=== PATIENT | female | born 1960 | race Caucasian/White ===

== ENCOUNTER 2020-09-18 08:26 | Outpatient (CLI) | payer BC, SELFPAY | END 2020-09-18 08:27 | disposition home or self-care (01) | LOC: WOUND 08:31 | PROVIDERS: Family Provider Family Medicine; PCP Family Medicine; Visit Provider Nurse Practitioner Family | DX: L97.811 Non-pressure chronic ulcer of other part of right lower leg limited to breakdown of skin (principal) | CPT/HCPCS: 99214 ==

== ENCOUNTER 2020-09-25 08:08 | Outpatient (CLI) | payer BC, SELFPAY | END 2020-09-25 08:09 | disposition home or self-care (01) | LOC: WOUND 08:08 | PROVIDERS: Family Provider Family Medicine; PCP Family Medicine; Visit Provider Nurse Practitioner Family | DX: L97.811 Non-pressure chronic ulcer of other part of right lower leg limited to breakdown of skin (principal) | CPT/HCPCS: G0463 ==

== ENCOUNTER 2020-10-09 07:49 | Outpatient (CLI) | payer BC, SELFPAY | END 2020-10-09 07:50 | disposition home or self-care (01) | LOC: WOUND 07:50 | PROVIDERS: Family Provider Family Medicine; PCP Family Medicine; Visit Provider Nurse Practitioner Family | DX: L97.812 Non-pressure chronic ulcer of other part of right lower leg with fat layer exposed (principal) | CPT/HCPCS: 11042; 11045 ==

== ENCOUNTER 2020-10-14 06:00 | Outpatient (RCR) | payer BC, SELFPAY | END 2020-11-03 23:59 | disposition home or self-care (01) | LOC: MPT 06:00 | PROVIDERS: Family Provider Family Medicine; PCP Family Medicine; Referring Provider Nurse Practitioner Family; Visit Provider Nurse Practitioner Family | DX: T81.31XD Disruption of external operation (surgical) wound, not elsewhere classified, subsequent encounter (principal) | CPT/HCPCS: 97110; 97162 ==

== ENCOUNTER 2020-10-16 07:51 | Outpatient (CLI) | payer BC, SELFPAY | END 2020-10-16 07:52 | disposition home or self-care (01) | LOC: WOUND 07:52 | PROVIDERS: Family Provider Family Medicine; PCP Family Medicine; Visit Provider Nurse Practitioner Family | DX: T81.89XA Other complications of procedures, not elsewhere classified, initial encounter (principal) | CPT/HCPCS: 11042; 11045 ==

== ENCOUNTER 2021-02-23 06:00 | Outpatient (RCR) | payer BC, SELFPAY | END 2021-03-05 23:59 | disposition home or self-care (01) | LOC: MPT 06:00 | PROVIDERS: PCP Family Medicine; Referring Provider Surgery Plastic and Reconstructive Surgery; Visit Provider Surgery Plastic and Reconstructive Surgery | DX: S82.251 Displaced comminuted fracture of shaft of right tibia (principal); X58.XXXD Exposure to other specified factors, subsequent encounter | CPT/HCPCS: 97140; 97162 ==

== ENCOUNTER 2021-05-06 06:00 | Outpatient (RCR) | payer BC, SELFPAY | END 2021-06-05 23:59 | disposition home or self-care (01) | LOC: MPO 06:00 | PROVIDERS: PCP Family Medicine; Referring Provider Physical Medicine & Rehabilitation Spinal Cord Injury Medicine; Visit Provider Physical Medicine & Rehabilitation Spinal Cord Injury Medicine | DX: Z89.511 Acquired absence of right leg below knee (principal) | CPT/HCPCS: 97110; 97162 ==

== ENCOUNTER → 2021-07-17 16:54 | Outpatient (BNVA) | payer BC, SELFPAY | PROVIDERS: PCP Family Medicine; Visit Provider Emergency Medicine | DX: R10.2 Pelvic and perineal pain (principal); N39.0 Urinary tract infection, site not specified; R31.9 Hematuria, unspecified; S88.119A Complete traumatic amputation at level between knee and ankle, unspecified lower leg, initial encounter | CPT/HCPCS: 81000 ==

== ENCOUNTER → 2021-10-10 12:51 | Outpatient (BNVA) | payer BC, SELFPAY | PROVIDERS: PCP Family Medicine; Visit Provider Nurse Practitioner | DX: N39.0 Urinary tract infection, site not specified (principal); R39.9 Unspecified symptoms and signs involving the genitourinary system | CPT/HCPCS: 81000 ==

== ENCOUNTER → 2021-11-13 17:44 | Outpatient (BNVA) | payer BC, SELFPAY | PROVIDERS: PCP Family Medicine; Visit Provider Emergency Medicine | DX: N39.0 Urinary tract infection, site not specified (principal) | CPT/HCPCS: 81000 ==

== ENCOUNTER → 2022-09-22 11:12 | Outpatient (BNVA) | payer BC, SELFPAY | PROVIDERS: PCP Family Medicine; Visit Provider Nurse Practitioner Family | DX: N39.0 Urinary tract infection, site not specified (principal) | CPT/HCPCS: 81000; 87077; 87086; 87184 ==

== ENCOUNTER → 2023-01-25 12:52 | Outpatient (BNVA) | payer BC, SELFPAY | PROVIDERS: PCP Family Medicine; Visit Provider Nurse Practitioner Family | DX: N39.0 Urinary tract infection, site not specified (principal) | CPT/HCPCS: 81000; 87077; 87086; 87184 ==

== ENCOUNTER → 2023-02-08 14:07 | Outpatient (BNVA) | payer MEDICARE, SELFPAY | PROVIDERS: PCP Family Medicine; Visit Provider Nurse Practitioner Family | DX: R39.9 Unspecified symptoms and signs involving the genitourinary system (principal) | CPT/HCPCS: 81000; 87086 ==

== ENCOUNTER → 2023-03-25 11:07 | Outpatient (BNVA) | payer MEDICARE, SELFPAY | PROVIDERS: PCP Family Medicine; Visit Provider Nurse Practitioner Family | DX: R39.9 Unspecified symptoms and signs involving the genitourinary system (principal); R30.0 Dysuria | CPT/HCPCS: 81000; 87077; 87086; 87184 ==

== ENCOUNTER → 2023-07-01 10:54 | Outpatient (BNVA) | payer MEDICARE, SELFPAY | PROVIDERS: PCP Family Medicine; Referring Provider Nurse Practitioner Family; Visit Provider Nurse Practitioner Family | DX: L40.8 Other psoriasis (principal); L23.9 Allergic contact dermatitis, unspecified cause | CPT/HCPCS: 99203 ==

== ENCOUNTER → 2023-08-01 13:12 | Outpatient (BNVA) | payer MEDICARE, SELFPAY | PROVIDERS: PCP Family Medicine; Visit Provider Nurse Practitioner Family | DX: L40.8 Other psoriasis (principal); L23.9 Allergic contact dermatitis, unspecified cause; L57.0 Actinic keratosis; L82.0 Inflamed seborrheic keratosis; L91.8 Other hypertrophic disorders of the skin | CPT/HCPCS: 11200; 17000; 17110; 99214 ==

== ENCOUNTER → 2023-10-18 09:30 | Outpatient (BNVA) | payer MEDICARE, SELFPAY | PROVIDERS: PCP Family Medicine; Visit Provider Nurse Practitioner Family | DX: L40.8 Other psoriasis (principal); L82.0 Inflamed seborrheic keratosis; L57.0 Actinic keratosis; L57.8 Other skin changes due to chronic exposure to nonionizing radiation | CPT/HCPCS: 17000; 17110; 99214 ==

== ENCOUNTER 2024-07-04 15:07 | Inpatient (IN) | payer MEDICARE, SELFPAY ==
[2024-07-04 15:08] VITALS: BP 123/85; PULSE 81; RESP 16; TEMP 36.5; O2SAT 91
--- NOTE | 2024-07-04 15:22 | ECG_ITS ---
[facility] 2024-[facility]-04 Pat Name: Lisa Hopkins Department: Room: Gender: Female Hr Receptionist: : [id number] Requested By: Megan Rose Order Number: [id number] MD: Wil Ron M.D. Measurements Intervals [place] Rate: 73 P: 46 NC: 237 QRS: 23 QRSD: 90 T: 42 QT: 369 QTc: 409 Interpretive Statements SINUS RHYTHM WITH FIRST DEGREE AV BLOCK LOW QRS VOLTAGE IN PRECORDIAL LEADS [QRS DEFLECTION < 1.0 mV IN CHEST LEADS] POSSIBLE RIGHT VENTRICULAR CONDUCTION DELAY [RSR (QR) IN V1/V2] No previous ECG available for comparison Electronically Signed On 07-05-2024 11:15:18 [employer]ING SUPERVISOR by Wil Ron M.D. [email or web address]
--- NOTE | 2024-07-04 15:28 | W.ED.PSYCHS ---
HPI - Psych General: Chief Complaint: Psychiatric Symptoms Stated Complaint: MHE Time Seen by Provider: 07/04/24 15:17 History of Present Illness: 63-year-old female with a history of depression who presents to the emergency room from the behavioral health clinic on a 96-hour hold after expressing suicidal thoughts. Apparently she was very tearful there and emotional and said that she thinks about suicide all the time and she has an active plan. She wants to take a chair and to the yard and blow her brains out. Expressing issues with anger towards her . They are concerned she might be a danger to herself. When I speak with her she says about 6 weeks ago she went to another hospital in [place] and was given some medications and she has been much worse since then. She endorses suicidal thoughts to me here as well. She is still somewhat tearful Related Data Home Medications Medication Instructions Recorded Confirmed pantoprazole 40 mg tablet,delayed 40 mg PO DAILY 07/17/21 07/04/24 release (Protonix) chlorpromazine 100 mg tablet 100 mg PO BEDTIME 06/04/24 07/04/24 ascorbic acid (vitamin C) 500 mg 250 mg PO DAILY 07/04/24 07/04/24 tablet (Vitamin C) cholecalciferol (vitamin D3) 25 25 mcg PO DAILY 07/04/24 07/04/24 mcg (1,000 unit) tablet (Vitamin D3) clonazepam 1 mg tablet 1 mg PO BEDTIME PRN Sleep 07/04/24 07/04/24 gabapentin 600 mg tablet 600 mg PO TID 07/04/24 07/04/24 ibuprofen 800 mg tablet 800 mg PO Q8H PRN Pain 07/04/24 07/04/24 magnesium 250 mg tablet 250 mg PO DAILY 07/04/24 07/04/24 oxycodone 5 mg tablet 5 mg PO Q4H PRN Pain 07/04/24 07/04/24 Allergies Allergy/AdvReac Type Severity Reaction Status Date / Time hydroxyzine Allergy Unknown Verified 07/04/24 15:17 naproxen Allergy Unknown Verified 07/04/24 15:17 Penicillins Allergy Unknown Verified 07/04/24 15:17 Review of Systems Narrative: Constitutional symptoms: Negative except as documented in HPI. Skin symptoms: Negative except as documented in HPI. Eye symptoms: Negative except as documented in HPI. ENMT symptoms: Negative except as documented in HPI. Respiratory symptoms: Negative except as documented in HPI. Cardiovascular symptoms: Negative except as documented in HPI. Gastrointestinal symptoms: Negative except as documented in HPI. Genitourinary symptoms: Negative except as documented in HPI. Musculoskeletal symptoms: Negative except as documented in HPI. Neurologic symptoms: Negative except as documented in HPI. Psychiatric symptoms: Negative except as documented in HPI. Endocrine symptoms: Negative except as documented in HPI. [facility] ED PFSH: Medical History (Updated 07/04/24 @ 17:25 by Megan Pacheco MD) Psychiatric care Below-knee amputation Social History Smoking and tobacco/nicotine status: never used tobacco/nicotine Physical Exam Narrative: EXAM NARRATIVE: General: Alert. no acute distress Skin: Warm, dry Head: Normocephalic, atraumatic. Neck: Supple, trachea midline. Eye: Extraocular movements are intact. Ears, nose, mouth and throat: Oral mucosa moist. Cardiovascular: Regular rate and rhythm, Normal peripheral perfusion. Respiratory: Lungs are clear to auscultation, respirations are non-labored, breath sounds are equal, Symmetrical chest wall expansion. Gastrointestinal: Soft, Nontender, Non distended, Normal bowel sounds. Musculoskeletal: Normal ROM, BKA with prosthesis in place Neurological: Alert and oriented to person, place, time, and situation, No focal neurological deficit observed. Psychiatric: Cooperative, depressed, expresses suicidal ideation. Course Vital Signs: Vital signs: Vital Signs Temperature 97.7 F 07/04/24 15:08 Pulse Rate 81 07/04/24 15:08 Respiratory Rate 16 07/04/24 15:08 Blood Pressure 123/85 07/04/24 15:08 Pulse Oximetry 91 07/04/24 15:08 Oxygen Delivery Me thod Room Air 07/04/24 15:08 MDM - Psych Medical Decision Making Differential diagnosis: Patient with reported depression and suicidal ideation. concerns for infection, alcohol intoxication, cardiac issues or other medical problems prior to psychiatric admission. Workup: labwork, ekg ordered to evaluate the pathologies and to clear the patient medically prior to psychiatric admission EKG: Time 1543. Rate 73. Normal sinus rhythm, No ST-T changes, no ectopy, first degree AV Block, EP Interpretation. This was reviewed and interpreted by myself the ER physician at 1548. Lab Review: Laboratory results were reviewed and interpreted by myself the emergency room physician. - Medically cleared. - EKG shows no ischemic changes. - Blood alcohol level is negative, -Tylenol and salicylate levels are negative. - Drug screen is positive for marijuana - No signs of infection, urinalysis clear and white count is not elevated - No anemia. - BUN and creatinine are within normal limits. Consultation: I spoke with Dr. Blackman who is on-call for the psychiatric service who agrees to admission Assessment and plan: Suicidal ideation Depression -Admission to neuropsychiatric unit for continued evaluation and treatment. - All lab work was reviewed and interpreted personally by myself, the ER physician - Evaluation and treatment of this problem were appropriate in the emergency setting Lab Data 07/04/24 16:11 07/04/24 16:11 Laboratory Results WBC 5.93 10^3/uL (3.29-11.43) 07/04/24 16:11 RBC 4.28 10^6/uL (3.85-5.65) 07/04/24 16:11 Hgb 13.40 g/dL (11.27-16.99) 07/04/24 16:11 Hct 40.8 % (36-47) 07/04/24 16:11 MCV 95.3 fl (85-98) 07/04/24 16:11 MCH 31.3 pg (27-33) 07/04/24 16:11 MCHC 32.8 g/dL (30-55) 07/04/24 16:11 RDW 11.9 % (12.1-15.1) L 07/04/24 16:11 Plt Count 246 10^3/cmm (157-399) 07/04/24 16:11 MPV 10.5 fL (7.4-10.4) H 07/04/24 16:11 Neut % (Auto) 67.4 % 07/04/24 16:11 Lymph % (Auto) 24.3 % 07/04/24 16:11 Saunders % (Auto) 6.9 % 07/04/24 16:11 Eos % (Auto) 0.8 % 07/04/24 16:11 Baso % (Auto) 0.3 % 07/04/24 16:11 Neut # (Auto) 3.99 10^3/uL (1.8-7.7) 07/04/24 16:11 Lymph # (Auto) 1.4 10^3/uL (0.8-4.8) 07/04/24 16:11 Saunders # (Auto) 0.4 10^3/uL (0.2-0.9) 07/04/24 16:11 Eos # (Auto) 0.1 10^3/uL (0.0-0.8) 07/04/24 16:11 Baso # (Auto) 0.0 10^3/uL (0.0-0.1) 07/04/24 16:11 Nucleated RBC % (auto) 0 % 07/04/24 16:11 Nucleated RBCs # 0.0 /100WBC 07/04/24 16:11 Sodium 138 mmol/L (136-145) 07/04/24 16:11 Potassium 3.9 mmol/L (3.5-5.1) 07/04/24 16:11 Chloride 102 mmol/L (98-107) 07/04/24 16:11 Carbon Dioxide 23 mmol/L (22-29) 07/04/24 16:11 Anion Gap 16.9 (5-19) 07/04/24 16:11 BUN 18 mg/dL (8-23) 07/04/24 16:11 Creatinine 0.5 mg/dL (0.5-0.9) 07/04/24 16:11 GFR Calculation 125.0 mL/min (90-130) 07/04/24 16:11 Glucose 91 mg/dL (65-115) 07/04/24 16:11 Calculated Osmolality 287 mOsm/kg (285-295) 07/04/24 16:11 Calcium 9.0 mg/dL (8.5-10.5) 07/04/24 16:11 Total Bilirubin 0.8 mg/dL (0.15-1.2) 07/04/24 16:11 AST 19 U/L (0-32) 07/04/24 16:11 ALT 13 U/L (0-33) 07/04/24 16:11 Alkaline Phosphatase 83 U/L (35-105) 07/04/24 16:11 Total Protein 6.2 g/dL (6.6-8.7) L 07/04/24 16:11 Albumin 4.3 g/dL (3.5-5.2) 07/04/24 16:11 Globulin 1.9 g/dL (1.3-4.6) 07/04/24 16:11 TSH 0.66 uIU/mL (0.27-4.20) 07/04/24 16:11 Urine Color Yellow (Yellow) 07/04/24 15:43 Urine Appearance Clear (CLEAR) 07/04/24 15:43 Urine pH 6.5 (5-7) 07/04/24 15:43 Ur Specific [place] 1.021 (1.005-1.030) 07/04/24 15:43 Urine Protein Negative (Negative) 07/04/24 15:43 Urine Glucose (UA) Negative (Normal) 07/04/24 15:43 Urine Ketones Negative (Negative) 07/04/24 15:43 Urine Blood Negative (Negative) 07/04/24 15:43 Urine Nitrate Negative (Negative) 07/04/24 15:43 Urine Bilirubin Negative (Negative) 07/04/24 15:43 Urine Urobilinogen 1.0 mg/dL (Negative) 07/04/24 15:43 Ur Leukocyte Esterase Trace (Negative) A 07/04/24 15:43 Urine RBC 0-2 /hpf (0-2) 07/04/24 15:43 Urine WBC 0-5 /hpf (0-5) 07/04/24 15:43 Ur Squamous Epith Cells 0-5 /hpf (0-5) 07/04/24 15:43 Amorphous Sediment Not Reportable 07/04/24 15:43 Urine Bacteria None seen /hpf (NONE) 07/04/24 15:43 Hyaline Casts 0-4 /lpf H 07/04/24 15:43 Salicylates 1.2 mg/dL (3-10) L 07/04/24 16:11 Urine Opiates Screen Negative ng/mL (Negative) 07/04/24 15:43 Acetaminophen < 5.0 ug/mL (10-30) L 07/04/24 16:11 Ur Barbiturates Screen Negative ng/mL (Negative) 07/04/24 15:43 Ur Phencyclidine Scrn Negative ng/mL (Negative) 07/04/24 15:43 Ur Amphetamines Screen Negative ng/mL (Negative) 07/04/24 15:43 U Benzodiazepines Scrn Negative ng/mL (Negative) 07/04/24 15:43 Urine Cocaine Screen Negative ng/mL (Negative) 07/04/24 15:43 U Marijuana (THC) Screen Positive ng/mL (Negative) H 07/04/24 15:43 Ethyl Alcohol < 10 mg/dL (0-10) 07/04/24 16:11 No radiology studies performed this visit Discharge Plan Discharge Patient Disposition: Admitted As Inpatient Clinical Impression: Suicidal ideation, Depression Condition: Stable Coding Level of Care Code ED Data Security Consultant for [employer]
[2024-07-04 15:50] LABS: Bilirubin Urine Negative (Negative); Blood Urine Negative (Negative); Glucose Urine UA Negative (Normal); Ketones Urine Negative (Negative); Leukocyte Esterase Urine Trace (Negative); Nitrate Urine Negative (Negative); Protein Urine Negative (Negative); Specific Gravity, Urine 1.021 (1.005-1.030); Urine Appearance Clear (CLEAR); Urine Color Yellow (Yellow); pH Urine 6.5 (5-7)
[2024-07-04 15:56] LABS: Bacteria Urine None Seen /hpf; Hyaline Casts Urine 0-4 /lpf; RBC Urine 0-2 /hpf (0-2); Squamous Epithelial Cell Urine 0-5 /hpf (0-5); WBC Urine 0-5 /hpf (0-5)
[2024-07-04 15:57] LABS: Amphetamines Screen Urine Negative (Negative); Barbiturates Screen Urine Negative (Negative); Benzodiazepines Screen Urine Negative (Negative); Cocaine Screen Urine Negative (Negative); Opiate Screen Urine Negative (Negative); PCP Screen Urine Negative (Negative); THC Screen Urine Positive (Negative)
[2024-07-04 16:10] LABS: Add Urine Culture? No
[2024-07-04 16:39] LABS: Basophils % 0.3 %; Eosinophils # 0.1 10^3/uL (0.0-0.8); Eosinophils % 0.8 %; Hematocrit 40.8 % (36-47); Lymphocytes # 1.4 10^3/uL (0.8-4.8); Lymphocytes % 24.3 %; Mean Corpuscular HGB Conc 32.8 g/dL (30-55); Mean Corpuscular Hemoglobin 31.3 pg (27-33); Mean Corpuscular Volume 95.3 fl (85-98); Mean Platelet Volume 10.5 fL (7.4-10.4); Monocytes # 0.4 10^3/uL (0.2-0.9); Monocytes % 6.9 %; Neutrophils # 3.99 10^3/uL (1.8-7.7); Neutrophils % 67.4 %; Nucleated Red Blood Cells % 0 %; Platelet Count 246 10^3/cmm (157-399); Red Blood Count 4.28 10^6/uL (3.85-5.65); Red Cell Distribution Width 11.9 % (12.1-15.1); White Blood Count 5.93 10^3/uL (3.29-11.43)
[2024-07-04 17:08] LABS: Alanine Aminotransferase 13 U/L (0-33); Albumin Level 4.3 g/dL (3.5-5.2); Alkaline Phosphatase 83 U/L (35-105); Anion Gap 16.9 (5-19); Aspartate Amino Transferase 19 U/L (0-32); Blood Urea Nitrogen 18 mg/dL (8-23); Carbon Dioxide 23 mmol/L (22-29); Chloride 102 mmol/L (98-107); Creatinine Clr Calc Pharmacy 126.5439; Globulin 1.9 g/dL (1.3-4.6); Glucose 91 mg/dL (65-115); Osmolality Calculated 287 mOsm/kg (285-295); Potassium 3.9 mmol/L (3.5-5.1); Salicylate 1.2 mg/dL (3-10); Sodium 138 mmol/L (136-145); Thyroid Stimulating Hormone 0.66 uIU/mL (0.27-4.20); Total Bilirubin 0.8 mg/dL (0.15-1.2); Total Protein 6.2 g/dL (6.6-8.7)
[2024-07-04 17:10] LABS: Acetaminophen < 5.0 ug/mL (10-30); Alcohol Level < 10 mg/dL (0-10)
--- NOTE | 2024-07-04 18:36 | PC.NURSE ---
96 hr rights reviewed with patient @2150 with assistance of [facility] articulation officer Everton Méndez All education reviewed. No verbalized questions or concerns. Pt was tearful and grateful to being admitted for further help and medication adjustments. Pt copy was left with patient. Pt did not want any snacks of beverages when asked.
[2024-07-04 19:50] VITALS: BP 119/85; PULSE 66; RESP 18; TEMP 36.8; O2SAT 96
[2024-07-04 19:54] VITALS: PULSE 87; O2SAT 98
[2024-07-04 20:25] VITALS: BP 119/85; PULSE 66; RESP 18; TEMP 36.8; O2SAT 96
[2024-07-04] MEDS: acetaminophen 325 mg Tablet 650 MG PO (20:27)
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
[2024-07-04] MEDS: chlorPROMazine 50 mg Tablet 100 MG PO (23:05)
[2024-07-04] MEDS: CLONazepam 1 mg Tablet PO (23:05)
[2024-07-05] MEDS: OLANZapine 5 mg ODT PO ×2 (00:34→17:02)
--- NOTE | 2024-07-05 01:22 | PC.NURSE ---
PT CONTINUES TO BE TEARFUL, ANXIOUS, MAKING STATEMENTS I CAN'T SLEEP AND THIS IS HOW I GET, I'M GOING TO GET VIOLENT I HAVE TO SLEEP NOW. GIVE ME SOMETHING NOW. PT WAS VERBALLY REDIRECTED AND THIS RN LISTENED TO PT INTENTLY. PT WAS GIVEN ZYDIS 5 MG ORDERED FOR INCREASED ANXIETY. PT ROOM WAS CHANGED TO [facility] DUE TO PT COMPLAINING ABOUT HER ROOM MATE IN [address] SNORING SO LOUD I CAN'T SLEEP. SUPPORT VOICED.
[2024-07-05 06:00] VITALS: BP 110/71; PULSE 62; RESP 16; TEMP 36.3; O2SAT 98
[2024-07-05] MEDS: gabapentin 300 mg Capsule 600 MG PO ×3 (09:59→21:17)
[2024-07-05] MEDS: ascorbic acid 500 mg Tablet 250 MG PO (09:59)
[2024-07-05] MEDS: pantoprazole DR 40 mg Tablet PO (10:00)
[2024-07-05] MEDS: cholecalciferol (vitamin D3) 1,000 unit Tablet 1000 UNIT PO (10:05)
--- NOTE | 2024-07-05 10:06 | PC.NURSE ---
Vitamin E3 1000 would not scan. Verified medication was correct with Jacinta Osuna LPN. Documented on AUG. One tablet given.
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
[2024-07-05 14:00] VITALS: BP 94/67; PULSE 72; RESP 18; TEMP 36.6; O2SAT 96
[2024-07-05] MEDS: nicotine 2 mg Gum BUCCAL (19:51)
[2024-07-05 21:06] VITALS: BP 144/86; PULSE 81; RESP 18; O2SAT 97
[2024-07-05] MEDS: chlorPROMazine 50 mg Tablet 100 MG PO (21:17)
[2024-07-05] MEDS: CLONazepam 1 mg Tablet PO (21:18)
[2024-07-06 06:00] VITALS: BP 111/87; PULSE 79; RESP 16; TEMP 36.7; O2SAT 97
[2024-07-06] MEDS: ascorbic acid 500 mg Tablet 250 MG PO (08:42)
[2024-07-06] MEDS: magnesium oxide 400 mg tablet 200 MG PO (08:42)
[2024-07-06] MEDS: gabapentin 300 mg Capsule 600 MG PO ×3 (08:42→22:00)
[2024-07-06] MEDS: cholecalciferol (vitamin D3) 1,000 unit Tablet 1000 UNIT PO (08:43)
[2024-07-06] MEDS: pantoprazole DR 40 mg Tablet PO (08:43)
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
[2024-07-06] MEDS: buPROPion XL (24 HR) 150 mg Tablet PO (12:25)
[2024-07-06 14:00] VITALS: BP 98/72; PULSE 88; RESP 16; TEMP 37; O2SAT 96
[2024-07-06 21:28] VITALS: BP 112/80; PULSE 90; RESP 16; TEMP 36.7; O2SAT 97
[2024-07-06] MEDS: CLONazepam 1 mg Tablet 0.5 MG PO (21:59)
[2024-07-06] MEDS: chlorPROMazine 50 mg Tablet PO (22:01)
[2024-07-06] MEDS: docusate sodium 100 mg Capsule 200 MG PO (22:28)
[2024-07-06] MEDS: trazodone 50 mg Tablet 100 MG PO (23:20)
[2024-07-06] MEDS: OLANZapine 5 mg ODT PO (23:20)
[2024-07-07 06:00] VITALS: BP 98/67; PULSE 78; RESP 18; TEMP 36.5; O2SAT 98
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
[2024-07-07] MEDS: gabapentin 300 mg Capsule 600 MG PO ×3 (09:27→21:20)
[2024-07-07] MEDS: buPROPion XL (24 HR) 150 mg Tablet PO (09:28)
[2024-07-07] MEDS: pantoprazole DR 40 mg Tablet PO (09:28)
[2024-07-07] MEDS: ascorbic acid 500 mg Tablet 250 MG PO (09:28)
[2024-07-07] MEDS: magnesium oxide 400 mg tablet 200 MG PO (09:28)
[2024-07-07] MEDS: cholecalciferol (vitamin D3) 1,000 unit Tablet 1000 UNIT PO (09:28)
[2024-07-07] MEDS: OLANZapine 5 mg ODT PO ×2 (12:50→21:21)
--- NOTE | 2024-07-07 12:54 | PC.NURSE ---
zYPREXA ZYPREXA 5MG ODT ADMINISTERED FOR INCREASED ANXIETY. PATIENT CRYING, ANXIOUS AND WORRIED ABOUT THE WELLBEING OF HER SON
[2024-07-07 14:00] VITALS: BP 112/77; PULSE 102; RESP 18; TEMP 36.9; O2SAT 95
[2024-07-07] MEDS: acetaminophen 325 mg Tablet 650 MG PO (14:05)
[2024-07-07] MEDS: nicotine 2 mg Gum BUCCAL (14:05)
[2024-07-07] MEDS: nystatin powder 15 gm Btl 1 APPLIC TOPICAL (15:53)
[2024-07-07 20:10] VITALS: BP 121/88; PULSE 95; RESP 18; TEMP 36.8; O2SAT 98
[2024-07-07] MEDS: chlorPROMazine 50 mg Tablet PO (21:20)
[2024-07-07] MEDS: CLONazepam 1 mg Tablet 0.5 MG PO (21:20)
[2024-07-07] MEDS: trazodone 50 mg Tablet 100 MG PO ×2 (21:21→22:40)
[2024-07-07] MEDS: ibuprofen 800 mg tablet PO (22:35)
[2024-07-07] MEDS: haloperidol 5 mg Tablet PO (23:37)
[2024-07-08 06:00] VITALS: BP 104/73; PULSE 88; RESP 18; TEMP 36.6; O2SAT 98; BMI 27.6
[2024-07-08] MEDS: gabapentin 300 mg Capsule 600 MG PO ×3 (08:10→20:18)
[2024-07-08] MEDS: pantoprazole DR 40 mg Tablet PO (08:10)
[2024-07-08] MEDS: magnesium oxide 400 mg tablet 200 MG PO (08:10)
[2024-07-08] MEDS: cholecalciferol (vitamin D3) 1,000 unit Tablet 1000 UNIT PO (08:10)
[2024-07-08] MEDS: buPROPion XL (24 HR) 150 mg Tablet PO (08:10)
[2024-07-08] MEDS: ascorbic acid 500 mg Tablet 250 MG PO (08:11)
[2024-07-08] MEDS: OLANZapine 5 mg ODT PO ×2 (08:16→16:56)
[2024-07-08] MEDS: nicotine 2 mg Gum BUCCAL ×3 (08:51→21:45)
--- NOTE | 2024-07-08 08:55 | PC.NURSE ---
Morning assessment Patient reports difficulty falling asleep last night, and the previous nights as well. Patient denies suicidal thoughts, homicidal thoughts, and hallucinations. Patient says that she is trying to stay busy. Patient denies any concerns or questions.
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
[2024-07-08] MEDS: acetaminophen 325 mg Tablet 650 MG PO ×2 (09:57→14:01)
[2024-07-08 13:57] VITALS: BP 112/68; PULSE 81; RESP 18; TEMP 36.6; O2SAT 98
[2024-07-08] MEDS: docusate sodium 100 mg Capsule 200 MG PO (14:01)
[2024-07-08] MEDS: trazodone 50 mg Tablet 200 MG PO ×2 (20:17→22:23)
[2024-07-08] MEDS: chlorPROMazine 50 mg Tablet PO (20:18)
[2024-07-08] MEDS: CLONazepam 1 mg Tablet 0.5 MG PO (20:18)
[2024-07-08 21:04] VITALS: BP 119/84; PULSE 89; RESP 18; TEMP 36.6; O2SAT 97
[2024-07-09 06:00] VITALS: BP 119/79; PULSE 82; RESP 18; TEMP 36.4; O2SAT 97
[2024-07-09] MEDS: docusate sodium 100 mg Capsule 200 MG PO (08:04)
[2024-07-09] MEDS: OLANZapine 5 mg ODT PO (08:04)
[2024-07-09] MEDS: ascorbic acid 500 mg Tablet 250 MG PO (08:05)
[2024-07-09] MEDS: magnesium oxide 400 mg tablet 200 MG PO (08:06)
[2024-07-09] MEDS: buPROPion XL (24 HR) 150 mg Tablet PO (08:06)
[2024-07-09] MEDS: gabapentin 300 mg Capsule 600 MG PO ×3 (08:06→20:55)
[2024-07-09] MEDS: nicotine 2 mg Gum BUCCAL ×2 (08:06→20:55)
[2024-07-09] MEDS: pantoprazole DR 40 mg Tablet PO (08:06)
[2024-07-09] MEDS: cholecalciferol (vitamin D3) 1,000 unit Tablet 1000 UNIT PO (08:07)
[2024-07-09] MEDS: acetaminophen 325 mg Tablet 650 MG PO (08:50)
[2024-07-09] MEDS: ibuprofen 800 mg tablet PO (11:52)
--- NOTE | 2024-07-09 13:44 | PC.NURSE ---
PT CONTINUES TO HAVE DIFFICULTY SLEEPING. PT WAS GIVEN TRAZODONE 200 MG LAST NIGHT AND WAS ONLY ABLE TO SLEEP APPROXIMATELY 3-4 HOURS PER STAFF AND PT REPORTS. NEW ORDERS RECEIVED TO GIVE AMBIEN 10 MG PO AT HS SCHEDULED AND INSTRUCTED TO LEAVE THE TRAZODONE 200 MG PO AT HS IN PLACE IF NEEDED. PT EDUCATED ON NEW ORDERS AND IS VERY HAPPY THAT I WILL BE ABLE TO SLEEP TONIGHT. SUPPORT VOICED.
[2024-07-09 14:00] VITALS: BP 98/65; PULSE 84; RESP 17; TEMP 37.3; O2SAT 97
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
--- NOTE | 2024-07-09 19:10 | PC.NURSE ---
ORDERS RECEIVED BY DR. LEDEZMA TO DISCONTINUE CLONAZEPAM.
[2024-07-09] MEDS: zolpidem 5 mg Tablet 10 MG PO (20:55)
[2024-07-09] MEDS: chlorPROMazine 50 mg Tablet PO (20:55)
[2024-07-09 22:00] VITALS: BP 107/68; PULSE 91; RESP 18; TEMP 37.3; O2SAT 97
[2024-07-10 06:00] VITALS: BP 133/86; PULSE 94; RESP 16; TEMP 36.6; O2SAT 97
[2024-07-10] MEDS: acetaminophen 325 mg Tablet 650 MG PO (08:40)
[2024-07-10] MEDS: magnesium oxide 400 mg tablet 200 MG PO (08:41)
[2024-07-10] MEDS: ascorbic acid 500 mg Tablet 250 MG PO (08:41)
[2024-07-10] MEDS: pantoprazole DR 40 mg Tablet PO (08:41)
[2024-07-10] MEDS: gabapentin 300 mg Capsule 600 MG PO ×3 (08:41→21:13)
[2024-07-10] MEDS: nicotine 2 mg Gum BUCCAL ×2 (08:45→20:55)
[2024-07-10] MEDS: buPROPion XL (24 HR) 300 mg Tablet PO (08:45)
--- NOTE | 2024-07-10 10:37 | DCPLANNER ---
IMM completed 07/10/2024 @ 1032 and pt was given a copy of her rights.
[2024-07-10] MEDS: cholecalciferol (vitamin D3) 1,000 unit Tablet 1000 UNIT PO (12:13)
[2024-07-10] MEDS: docusate sodium 100 mg Capsule 200 MG PO (13:13)
[2024-07-10] MEDS: ibuprofen 800 mg tablet PO ×2 (13:38→22:25)
[2024-07-10 14:00] VITALS: BP 118/86; PULSE 87; RESP 16; TEMP 36.6; O2SAT 97
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
[2024-07-10] MEDS: OLANZapine 5 mg ODT PO (18:46)
[2024-07-10 19:56] VITALS: BP 137/69; PULSE 93; RESP 18; TEMP 36.8; O2SAT 95
[2024-07-10] MEDS: zolpidem 5 mg Tablet 10 MG PO (21:13)
[2024-07-10] MEDS: chlorPROMazine 50 mg Tablet PO (21:13)
[2024-07-11 06:00] VITALS: BP 125/84; PULSE 73; RESP 16; TEMP 36.3; O2SAT 99
[2024-07-11] MEDS: ascorbic acid 500 mg Tablet 250 MG PO (08:23)
[2024-07-11] MEDS: magnesium oxide 400 mg tablet 200 MG PO (08:24)
[2024-07-11] MEDS: gabapentin 300 mg Capsule 600 MG PO ×2 (08:24→14:13)
[2024-07-11] MEDS: pantoprazole DR 40 mg Tablet PO (08:24)
[2024-07-11] MEDS: buPROPion XL (24 HR) 300 mg Tablet PO (08:25)
[2024-07-11] MEDS: cholecalciferol (vitamin D3) 1,000 unit Tablet 1000 UNIT PO (08:28)
[2024-07-11] MEDS: OLANZapine 5 mg ODT PO ×2 (11:03→14:13)
--- NOTE | 2024-07-11 13:34 | P.NPUDS_ITS ---
Diagnoses at Discharge Discharge Diagnosis (1) Generalized anxiety disorder: Status: Acute (2) Suicidal ideation: Status: Acute (3) Depression: Status: Acute (4) PTSD (post-traumatic stress disorder): Status: Acute Reason for Visit Reason for Visit: MHE Involuntary Hold Information 96 Hour Hold: 96 Hour Involuntary Admission: Yes 96 Hour Hold Ending Date: 07/10/24 96 Hour Hold Ending Time: 17:25 Mental Status Exam MSE Comments: This is an overweight versus obese white female in hospital scrubs with limited grooming and appropriate eye contact. 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 No abnormal movements except for mild psychomotor retardation. Cooperative exam in mild distress. Speech was decreased rate and volume. Mood described as better think I will be ready tomorrow, affect congruent. Thought process organized. Thought content: Patient denies suicidal or homicidal ideation, there are no delusions reported or noted, she denied auditory or visual hallucinations. Attention and concentration were intact and memory appeared somewhat reliable but formally tested. She is alert and oriented x3. Insight, judgment and impulse control are limited. Discharge Data Studies Completed and Pending: Laboratory Results WBC 5.93 10^3/uL (3.2 9-11.43) 07/04/24 16:11 RBC 4.28 10^6/uL (3.8 5-5.65) 07/04/24 16:11 Hgb 13.40 g/dL (11.27 -16.99) 07/04/24 16:11 Hct 40.8 % (36-47) 07/04/24 16:11 MCV 95.3 fl (85-98) 07/04/24 16:11 MCH 31.3 pg (27-33) 07/04/24 16:11 MCHC 32.8 g/dL (30-55) 07/04/24 16:11 RDW 11.9 % (12.1-15.1 ) L 07/04/24 16:11 Plt Count 246 10^3/cmm (157 -399) 07/04/24 16:11 MPV 10.5 fL (7.4-10.4 ) H 07/04/24 16:11 Neut % (Auto) 67.4 % 07/04/24 16:11 Lymph % (Auto) 24.3 % 07/04/24 16:11 [place] % (Auto) 6.9 % 07/04/24 16:11 Eos % (Auto) 0.8 % 07/04/24 16:11 Baso % (Auto) 0.3 % 07/04/24 16:11 Neut # (Auto) 3.99 10^3/uL (1.8 -7.7) 07/04/24 16:11 Lymph # (Auto) 1.4 10^3/uL (0.8- 4.8) 07/04/24 16:11 [place] # (Auto) 0.4 10^3/uL (0.2- 0.9) 07/04/24 16:11 Eos # (Auto) 0.1 10^3/uL (0.0- 0.8) 07/04/24 16:11 Baso # (Auto) 0.0 10^3/uL (0.0- 0.1) 07/04/24 16:11 Nucleated RBC % (a uto) 0 % 07/04/24 16:11 Nucleated RBCs # 0.0 /100WBC 07/04/24 16:11 Sodium 138 mmol/L (136-1 45) 07/04/24 16:11 Potassium 3.9 mmol/L (3.5-5 .1) 07/04/24 16:11 Chloride 102 mmol/L (98-10 7) 07/04/24 16:11 Carbon Dioxide 23 mmol/L (22-29) 07/04/24 16:11 Anion Gap 16.9 (5-19) 07/04/24 16:11 BUN 18 mg/dL (8-23) 07/04/24 16:11 Creatinine 0.5 mg/dL (0.5-0. 9) 07/04/24 16:11 GFR Calculation 125.0 mL/min (90- 130) 07/04/24 16:11 Glucose 91 mg/dL (65-115) 07/04/24 16:11 Calculated Osmolal ity 287 mOsm/kg (285- 295) 07/04/24 16:11 Calcium 9.0 mg/dL (8.5-10 .5) 07/04/24 16:11 Total Bilirubin 0.8 mg/dL (0.15-1 .2) 07/04/24 16:11 AST 19 U/L (0-32) 07/04/24 16:11 ALT 13 U/L (0-33) 07/04/24 16:11 Alkaline Phosphata se 83 U/L (35-105) 07/04/24 16:11 Total Protein 6.2 g/dL (6.6-8.7 ) L 07/04/24 16:11 Albumin 4.3 g/dL (3.5-5.2 ) 07/04/24 16:11 Globulin 1.9 g/dL (1.3-4.6 ) 07/04/24 16:11 TSH 0.66 uIU/mL (0.27 -4.20) 07/04/24 16:11 Urine Color Yellow (Yellow) 07/04/24 15:43 Urine Appearance Clear (CLEAR) 07/04/24 15:43 Urine pH 6.5 (5-7) 07/04/24 15:43 Ur Specific [place]it y 1.021 (1.005-1.0 30) 07/04/24 15:43 Urine Protein Negative (Negati ve) 07/04/24 15:43 Urine Glucose (UA) Negative (Normal ) 07/04/24 15:43 Urine Ketones Negative (Negati ve) 07/04/24 15:43 Urine Blood Negative (Negati ve) 07/04/24 15:43 Urine Nitrate Negative (Negati ve) 07/04/24 15:43 Urine Bilirubin Negative (Negati ve) 07/04/24 15:43 Urine Urobilinogen 1.0 mg/dL (Negati ve) 07/04/24 15:43 Ur Leukocyte [place] a[place] Trace (Negative) A 07/04/24 15:43 Urine RBC 0-2 /hpf (0-2) 07/04/24 15:43 Urine WBC 0-5 /hpf (0-5) 07/04/24 15:43 Ur Squamous Epith Cells 0-5 /hpf (0-5) 07/04/24 15:43 Amorphous Sediment Not Reportable 07/04/24 15:43 Urine Bacteria None seen /hpf (N ONE) 07/04/24 15:43 Hyaline Casts 0-4 /lpf H 07/04/24 15:43 Salicylates 1.2 mg/dL (3-10) L 07/04/24 16:11 Urine Opiates Scre en Negative ng/mL (N egative) 07/04/24 15:43 Acetaminophen < 5.0 ug/mL (10-3 0) L 07/04/24 16:11 Ur Barbiturates Sc reen Negative ng/mL (N egative) 07/04/24 15:43 Ur Phencyclidine S crn Negative ng/mL (N egative) 07/04/24 15:43 Ur Amphetamines Sc reen Negative ng/mL (N egative) 07/04/24 15:43 U Benzodiazepines Scrn Negative ng/mL (N egative) 07/04/24 15:43 Urine Cocaine Scre en Negative ng/mL (N egative) 07/04/24 15:43 U Marijuana (THC) Screen Positive ng/mL (N egative) H 07/04/24 15:43 Ethyl Alcohol < 10 mg/dL (0-10) 07/04/24 16:11 Vitals: Last Vital Signs Temp 97.3 F L 07/11/24 06:00 Pulse 73 07/11/24 06:00 Resp 16 07/11/24 06:00 BP 125/84 07/11/24 06:00 Pulse Ox 99 07/11/24 06:00 O2 Del Method Room Air 07/11/24 06:00 Discharge Plan Discharge Patient Disposition: Home Condition: Stable Prescriptions: New trazodone 100 mg tablet 200 mg PO BEDTIME PRN (Reason: Sleep) 30 Days Qty: 60 1RF bupropion HCl 300 mg Tablet Extended Release 24 Hr 300 mg PO DAILY 30 Days Qty: 30 1RF zolpidem [Ambien] 10 mg tablet 10 mg PO BEDTIME 30 Days Qty: 30 1RF Continued pantoprazole [Protonix] 40 mg tablet,delayed release (DR/EC) 40 mg PO DAILY chlorpromazine 100 mg tablet 100 mg PO BEDTIME ibuprofen 800 mg tablet 800 mg PO Q8H PRN (Reason: Pain) ascorbic acid (vitamin C) [Vitamin C] 500 mg Tablet 250 mg PO DAILY magnesium 250 mg Tablet 250 mg PO DAILY cholecalciferol (vitamin D3) [Vitamin D3] 25 mcg (1,000 unit) Tablet 25 mcg PO DAILY gabapentin 600 mg tablet 600 mg PO TID 30 Days Qty: 90 1RF Discontinued clonazepam 1 mg tablet 1 mg PO BEDTIME PRN (Reason: Sleep) Discharge Orders: Discharge Order (Routine); Ordered 07/11/24 Ordered By: Bobby Blackman Referrals: [facility] [Other] - 07/30/24 12:15 pm Jacinto Jones MD [Primary Care Provider] - Rosemarie Smith LMSW [Therapist] - 07/18/24 11:45 am Discharge Diet: Regular Discharge Activity: Resume usual activity Patient Instructions: Opioid Safety Discharge Attestations NPU Time Spent in Discharge Care*: less than 30 min Specific Discharge Activities: Specific discharge activities: educating patient, discussing with showcase maker/social workers/dc planners, documenting/other paperwork and evaluating patient/reviewing data Coding Level of Care Code Acute Code for Chg Fwd Diagnoses Generalized anxiety disorder F41.1 Suicidal ideation R45.851 Depression F32.A PTSD (post-traumatic stress disorder) F43.10
[2024-07-11 14:00] VITALS: BP 160/94; PULSE 88; RESP 18; TEMP 37.2; O2SAT 96
[2024-07-11 14:17] VITALS: BP 125/84; PULSE 73; RESP 16; TEMP 36.3; O2SAT 99
== END 2024-07-11 15:21 | disposition home or self-care (01) | DRG 881 ==
LOC: ER 17:25 → NP 18:52
PROVIDERS: Admitting Provider Psychiatry & Neurology Psychiatry; Emergency Provider Emergency Medicine; PCP Family Medicine; Visit Provider Psychiatry & Neurology Psychiatry
DX: F32.A Depression, unspecified (principal); R45.851 Suicidal ideations; F41.1 Generalized anxiety disorder; F43.10 Post-traumatic stress disorder, unspecified; E66.9 Obesity, unspecified; G47.00 Insomnia, unspecified; Z68.27 Body mass index [BMI] 27.0-27.9, adult; Z89.511 Acquired absence of right leg below knee
CPT/HCPCS: 36415; 80053; 80306; 80307; 81001; 84443; 85025; 93005; 97150; 97165; 99285; Q0161

== ENCOUNTER 2024-08-24 11:44 | Outpatient (CLI) | payer MEDICARE, SELFPAY ==
--- NOTE | 2024-08-24 11:47 | MM_ITS ---
WS: [id number] BILATERAL 3D TOMOSYNTHESIS DIGITAL SCREENING MAMMOGRAPHY WITH CAD CLINICAL INFORMATION: SCREENING HISTORY: Screening mammogram. No current complaints. COMPARISON: 2021 TECHNIQUE: Bilateral CC and MLO views. FINDINGS: The breasts are composed of heterogeneous fibroglandular density tissue, which can limit the detection of small underlying mass lesions. No suspicious mass, asymmetry, calcifications, or architectural distortion. No evidence of malignancy. Incidental punctate and lucent centered calcifications MM/MM [facility] tomosynthesis [id number] IMPRESSION: DENSITY: The breasts are heterogeneously dense, which may obscure small masses. BI-RADS: 2 - Benign FOLLOW UP: 1 Year Follow-up Recommend return to annual screening mammography.
== END 2024-08-24 11:45 | disposition home or self-care (01) ==
PROVIDERS: PCP Family Medicine; Visit Provider Family Medicine
DX: Z12.31 Encounter for screening mammogram for malignant neoplasm of breast (principal); R92.333 Mammographic heterogeneous density, bilateral breasts; R92.1 Mammographic calcification found on diagnostic imaging of breast
CPT/HCPCS: 77063; 77067

== ENCOUNTER 2024-09-01 15:05 | Emergency (ER) | payer MEDICARE, SELFPAY ==
[2024-09-01 15:10] VITALS: BP 142/83; PULSE 77; RESP 18; TEMP 36.7; O2SAT 99; BMI 25.8
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
[2024-09-01 15:51] LABS: Basophils % 0.7 %; Eosinophils # 0.1 10^3/uL (0.0-0.8); Eosinophils % 1.1 %; Hematocrit 39.8 % (36-47); Lymphocytes # 1.5 10^3/uL (0.8-4.8); Lymphocytes % 27.7 %; Mean Corpuscular HGB Conc 33.4 g/dL (30-55); Mean Corpuscular Volume 95.9 fl (85-98); Mean Platelet Volume 10.5 fL (7.4-10.4); Monocytes # 0.4 10^3/uL (0.2-0.9); Monocytes % 7.4 %; Neutrophils # 3.41 10^3/uL (1.8-7.7); Neutrophils % 62.9 %; Nucleated Red Blood Cells % 0 %; Platelet Count 147 10^3/cmm (157-399); Red Blood Count 4.15 10^6/uL (3.85-5.65); Red Cell Distribution Width 12.1 % (12.1-15.1); White Blood Count 5.42 10^3/uL (3.29-11.43)
[2024-09-01 16:07] LABS: Troponin(5th) Baseline < 6 ng/L (0-10)
[2024-09-01 16:12] LABS: Alanine Aminotransferase 17 U/L (0-33); Albumin Level 4.4 g/dL (3.5-5.2); Alkaline Phosphatase 91 U/L (35-105); Aspartate Amino Transferase 15 U/L (0-32); Blood Urea Nitrogen 13 mg/dL (8-23); Calcium 8.9 mg/dL (8.5-10.5); Carbon Dioxide 26 mmol/L (22-29); Chloride 102 mmol/L (98-107); Glucose 96 mg/dL (65-115); Osmolality Calculated 284 mOsm/kg (285-295); Sodium 137 mmol/L (136-145); Total Bilirubin 0.6 mg/dL (0.15-1.2); Total Protein 6.4 g/dL (6.6-8.7)
--- NOTE | 2024-09-01 17:11 | ECG_ITS ---
[facility]: 2024-[facility]01 Pat Name: Lisa Hopkins Department: Room: Gender: Female [employer]: : 1960 Requested By: Maikel Rose Order Number: [id number] Reading MD: Measurements Intervals [place] Rate: 68 P: 53 CT: 221 QRS: 20 QRSD: 93 T: 40 QT: 381 QTc: 406 Interpretive Statements SINUS RHYTHM WITH FIRST DEGREE AV BLOCK INCOMPLETE RIGHT BUNDLE BRANCH BLOCK [90+ ms QRS DURATION, TERMINAL R IN V1/V2, 40+ ms S IN I/aVL/V4/V5/V6] NONSPECIFIC T-WAVE ABNORMALITY [email or web address]
--- NOTE | 2024-09-01 17:25 | W.ED.ANXIETY ---
HPI - Anxiety General: Chief Complaint: Anxiety Stated Complaint: CP Time Seen by Provider: 09/01/24 17:21 History of Present Illness: 64-year-old female who presents to the emergency room with complaints of chest pain for the last week and a half. No history of blood clots, history of coronary artery disease she was hospitalized last month in the MPU after which she had a cough that has persisted. She has been to a couple rounds of antibiotics she also had some urinary tract symptoms. She has no history of DVT or PE. Associated symptoms: Reports chest pain; Deny chills or fever(s) Related Data Home Medications ?Medication ?Instructions ?Recorded ?Confirmed pantoprazole 40 mg tablet,delayed 40 mg PO DAILY 07/17/21 08/10/24 release (Protonix) ascorbic acid (vitamin C) 500 mg 250 mg PO DAILY 07/04/24 08/10/24 tablet (Vitamin C) cholecalciferol (vitamin D3) 25 25 mcg PO DAILY 07/04/24 08/10/24 mcg (1,000 unit) tablet (Vitamin D3) ibuprofen 800 mg tablet 800 mg PO Q8H PRN Pain 07/04/24 08/10/24 magnesium 250 mg tablet 250 mg PO DAILY 07/04/24 08/10/24 Previous Rx's ?Medication ?Instructions ?Recorded bupropion HCl 300 mg 24 hr tablet, 300 mg PO DAILY 30 days #30 tabs 07/30/24 extended release gabapentin 300 mg capsule 300 mg PO TID #90 caps 07/30/24 gabapentin 600 mg tablet 600 mg PO TID 30 days #90 tabs 07/30/24 trazodone 100 mg tablet 200 mg (2 x 100 mg) PO BEDTIME PRN 07/30/24 Sleep 30 days #60 tabs zolpidem 10 mg tablet (Ambien) 10 mg PO BEDTIME 30 days #30 tabs 07/30/24 dxjatilvfsuhnxn-rfwlvqccizzgpye-[id number] 5 ml PO Q6H PRN allergy symptoms 08/10/24 2 mg-30 mg-10 mg/5 mL oral syrup #118 mL (Bromfed DM) valacyclovir 1 gram tablet 1,000 mg PO TID #21 tabs 08/10/24 Allergies Allergy/AdvReac Type Severity Reaction Status Date / Time hydroxyzine Allergy Unknown Verified 08/10/24 14:06 naproxen Allergy Unknown Verified 08/10/24 14:06 Penicillins Allergy Unknown Verified 08/10/24 14:06 Review of Systems Const: Denies: fever(s) or chills Card: Reports: chest pain Resp: Denies: dyspnea GI: Denies: abdominal pain : Reports: dysuria; Denies: urinary frequency or urinary urgency Musc: Denies: neck pain or back pain Skin/Breast: Denies: rash PFSH ED PFSH: Medical History Amputation of right lower extremity below knee PTSD (post-traumatic stress disorder) Psychiatric care Below-knee amputation Social History Smoking and tobacco/nicotine status: never used tobacco/nicotine Physical Exam Const: GENERAL APPEARANCE: cooperative ORIENTATION/CONSCIOUSNESS: Yes awake, Yes oriented to person, Yes oriented to place and Yes oriented to time HENMT: COMMON NORMALS: normocephalic, atraumatic and hearing grossly normal bilaterally HEAD & SCALP: normocephalic and atraumatic Resp: COMMON NORMALS: normal respiratory effort, No retractions, No use of accessory muscles and clear to auscultation bilaterally AUSCULTATION: clear to auscultation bilaterally Cardio: COMMON NORMALS: regular rate, regular rhythm and No murmurs present (Cardio) RATE: regular rate RHYTHM: regular rhythm GI: COMMON NORMALS: Soft to palpation and No hepatosplenomegaly present AUSCULTATION: Yes normoactive bowel sounds PALPATION: Yes Soft to palpation, No Tenderness to palpation present (GI), No Guarding due to palpation present (GI) and Yes No hepatosplenomegaly present Extremity: COMMON NORMALS: normal to inspection, capillary refill normal, no clubbing, cyanosis or edema, no calf tenderness and no pedal edema Neuro: SENSORIUM/ORIENTATION: Yes oriented to person, Yes oriented to place and Yes oriented to time Skin: COMMON NORMALS: no rashes or lesions noted GENERAL SKIN EXAM: no rashes or lesions noted Course Vital Signs: Vital signs: Vital Signs Temperature 98.1 F 09/01/24 15:10 Pulse Rate 62 09/01/24 18:40 Respiratory Rate 15 09/01/24 18:40 Blood Pressure 139/82 09/01/24 18:40 Pulse Oximetry 94 03/29/25 18:40 Oxygen Delivery Me thod Room Air 09/01/24 18:00 MDM - Anxiety Medical Decision Making Cardiac enzymes and EKG unremarkable. There is no evidence of acute coronary syndrome chest x-ray rules of pneumonia pneumothorax no evidence of widening mediastinum. She is complaining of a chronic cough she has been on several antibiotics with no relief suspect it may be either allergies or persistent reflux. Will have her double up on her pantoprazole use cetirizine have her follow-up with primary care doctor within the next week. She also been concerned about urinary tract infection complaint of dysuria UA was normal. Medical Records I reviewed the patient's medical records. Lab Data I reviewed the patient's lab results. 09/01/24 15:43 09/01/24 15:43 Radiology Impressions Chest X-Ray 09/01/24 15:11 IMPRESSION: No acute findings. Laboratory Results WBC 5.42 10^3/uL (3.29-11.43) 09/01/24 15:43 RBC 4.15 10^6/uL (3.85-5.65) 09/01/24 15:43 Hgb 13.30 g/dL (11.27-16.99) 09/01/24 15:43 Hct 39.8 % (36-47) 09/01/24 15:43 MCV 95.9 fl (85-98) 09/01/24 15:43 MCH 32.0 pg (27-33) 09/01/24 15:43 MCHC 33.4 g/dL (30-55) 09/01/24 15:43 RDW 12.1 % (12.1-15.1) 09/01/24 15:43 Plt Count 147 10^3/cmm (157-399) L 09/01/24 15:43 MPV 10.5 fL (7.4-10.4) H 09/01/24 15:43 Neut % (Auto) 62.9 % 09/01/24 15:43 Lymph % (Auto) 27.7 % 09/01/24 15:43 [place] % (Auto) 7.4 % 09/01/24 15:43 Eos % (Auto) 1.1 % 09/01/24 15:43 Baso % (Auto) 0.7 % 09/01/24 15:43 Neut # (Auto) 3.41 10^3/uL (1.8-7.7) 09/01/24 15:43 Lymph # (Auto) 1.5 10^3/uL (0.8-4.8) 09/01/24 15:43 [place] # (Auto) 0.4 10^3/uL (0.2-0.9) 09/01/24 15:43 Eos # (Auto) 0.1 10^3/uL (0.0-0.8) 09/01/24 15:43 Baso # (Auto) 0.0 10^3/uL (0.0-0.1) 09/01/24 15:43 Nucleated RBC % (auto) 0 % 09/01/24 15:43 Nucleated RBCs # 0.0 /100WBC 09/01/24 15:43 Sodium 137 mmol/L (136-145) 09/01/24 15:43 Potassium 4.0 mmol/L (3.5-5.1) 09/01/24 15:43 Chloride 102 mmol/L (98-107) 09/01/24 15:43 Carbon Dioxide 26 mmol/L (22-29) 09/01/24 15:43 Anion Gap 13.0 (5-19) 09/01/24 15:43 BUN 13 mg/dL (8-23) 09/01/24 15:43 Creatinine 0.6 mg/dL (0.5-0.9) 09/01/24 15:43 GFR Calculation 101.0 mL/min (90-130) 09/01/24 15:43 Glucose 96 mg/dL (65-115) 09/01/24 15:43 Calculated Osmolality 284 mOsm/kg (285-295) L 09/01/24 15:43 Calcium 8.9 mg/dL (8.5-10.5) 09/01/24 15:43 Total Bilirubin 0.6 mg/dL (0.15-1.2) 09/01/24 15:43 AST 15 U/L (0-32) 09/01/24 15:43 ALT 17 U/L (0-33) 09/01/24 15:43 Alkaline Phosphatase 91 U/L (35-105) 09/01/24 15:43 Troponin T Baseline < 6 ng/L (0-10) 09/01/24 15:43 Troponin T 120 Minute 6.00 ng/L (0-10) 09/01/24 17:55 Delta Troponin T [id number] ABS# (0-10) 09/01/24 17:55 Total Protein 6.4 g/dL (6.6-8.7) L 09/01/24 15:43 Albumin 4.4 g/dL (3.5-5.2) 09/01/24 15:43 Globulin 2.0 g/dL (1.3-4.6) 09/01/24 15:43 Urine Color Yellow (Yellow) 09/01/24 18:02 Urine Appearance Cloudy (CLEAR) A 09/01/24 18:02 Urine pH 8 (5-7) A 09/01/24 18:02 Ur Specific [place] 1.015 (1.005-1.030) 09/01/24 18:02 Urine Protein Neg (Negative) 09/01/24 18:02 Urine Glucose (UA) Norm (Normal) 09/01/24 18:02 Urine Ketones Negative (Negative) 09/01/24 18:02 Urine Blood Neg (Negative) 09/01/24 18:02 Urine Nitrate Negative (Negative) 09/01/24 18:02 Urine Bilirubin Neg (Negative) 09/01/24 18:02 Urine Urobilinogen Neg mg/dL (Negative) 09/01/24 18:02 Ur Leukocyte Esterase Negative (Negative) 09/01/24 18:02 Urine RBC 3-5 /hpf (0-2) 09/01/24 18:02 Urine WBC 0-5 /hpf (0-5) 09/01/24 18:02 Ur Squamous Epith Cells 0-5 /hpf (0-5) 09/01/24 18:02 Amorphous Sediment Not Reportable 09/01/24 18:02 Urine Bacteria None seen /hpf (NONE) 09/01/24 18:02 Hyaline Casts 0-4 /lpf H 09/01/24 18:02 All radiology interpretation(s) finalized by discharge Discharge Plan Discharge Patient Disposition: Home Clinical Impression: Atypical chest pain, Anxiety, Chest pain due to GERD Condition: Stable Prescriptions: No Action pantoprazole [Protonix] 40 mg tablet,delayed release (DR/EC) 40 mg PO DAILY valacyclovir 1 gram tablet 1,000 mg PO TID Qty: 21 0RF azdccufqkiayxyu-trlshlpkj-BZ [Bromfed DM] 2-30-10 mg/5 mL syrup 5 ml PO Q6H PRN (Reason: allergy symptoms) Qty: 118 0RF bupropion HCl 300 mg tablet extended release 24 hr 300 mg PO DAILY 30 Days Qty: 30 5RF gabapentin 600 mg tablet 600 mg PO TID 30 Days Qty: 90 5RF Rx Instructions: Take 600 mg capsule with 300 mg capsule 3 times daily for total dosage of 900 mg of gabapentin 3 times a day. gabapentin 300 mg capsule 300 mg PO TID Qty: 90 5RF Rx Instructions: Take 300 mg capsule with 600 mg capsule 3 times daily for total dosage of 900 mg of gabapentin 3 times a day. trazodone 100 mg tablet 200 mg PO BEDTIME PRN (Reason: Sleep) 30 Days Qty: 60 5RF zolpidem [Ambien] 10 mg tablet 10 mg PO BEDTIME 30 Days Qty: 30 5RF ibuprofen 800 mg tablet 800 mg PO Q8H PRN (Reason: Pain) ascorbic acid (vitamin C) [Vitamin C] 500 mg Tablet 250 mg PO DAILY magnesium 250 mg Tablet 250 mg PO DAILY cholecalciferol (vitamin D3) [Vitamin D3] 25 mcg (1,000 unit) Tablet 25 mcg PO DAILY Discharge Orders: Discharge ED (Routine); Ordered 09/01/24 Ordered By: Maikel Murillo Referrals: Jacinto Jones MD [Primary Care Provider] - Patient Instructions: Opioid Safety, Pain Management Activity Restrictions/Additional Instructions: Thank you for choosing [facility] for your healthcare needs today. It is very important that you follow up as instructed or that you return to the Emergency Department should you have concerns or if your condition changes or worsens in any way. You were seen in the emergency room for complaints of chest discomfort. Your cardiac enzymes and EKGs did not show any abnormalities. Suspect the chest discomfort you are having may be due to reflux increase your pantoprazole to 40 mg twice a day. In addition to this also recommend you take cetirizine 10 mg 1 tablet twice a day. Follow-up with your primary care doctor. Print Language: Persian Coding Level of Care Code ED [employer]
[2024-09-01 18:00] VITALS: BP 142/83; PULSE 65; RESP 17; O2SAT 96
[2024-09-01 18:13] LABS: Add Urine Microscopic? NO; Bilirubin Urine Neg (Negative); Blood Urine Neg (Negative); Glucose Urine UA Norm (Normal); Ketones Urine Negative (Negative); Leukocyte Esterase Urine Negative (Negative); Nitrate Urine Negative (Negative); Protein Urine Neg (Negative); Specific Gravity, Urine 1.015 (1.005-1.030); Urine Appearance Cloudy (CLEAR); Urine Color Yellow (Yellow); Urobilinogen Urine Neg (Negative); pH Urine 8 (5-7)
[2024-09-01 18:15] LABS: Charge for UA Resulting for Rev
[2024-09-01 18:17] LABS: Bacteria Urine None Seen /hpf; Hyaline Casts Urine 0-4 /lpf; Squamous Epithelial Cell Urine 0-5 /hpf (0-5); WBC Urine 0-5 /hpf (0-5)
[2024-09-01 18:18] LABS: Troponin 5 2HR Delta 0.00001 ABS# (0-10)
[2024-09-01 18:40] VITALS: BP 139/82; PULSE 62; RESP 15; O2SAT 94
== END 2024-09-01 18:45 | disposition home or self-care (01) ==
PROVIDERS: Emergency Provider Family Medicine; PCP Family Medicine
DX: R07.89 Other chest pain (principal); F41.9 Anxiety disorder, unspecified; K21.9 Gastro-esophageal reflux disease without esophagitis
CPT/HCPCS: 36415; 71045; 80053; 81003; 84484; 85025; 93005; 99285